=== PATIENT | female | born 1955 | race Caucasian/White ===

== ENCOUNTER 2019-03-11 10:39 | Emergency (ER) | payer BC, OTHER ==
[~2019-03-11] VITALS: Ht 157.5 cm; Wt 68.2 kg
[~2019-03-11 10:39] MED LIST: NITR100C6 PO; PHEN-716 PO
[2019-03-11 10:42] VITALS: BP 138/79
[2019-03-11 11:22] LABS: CLARITY,URINE SLIGHTLY CLOUDY (Clear); COLOR,URINE YELLOW (Yellow); GLUCOSE, URINE NEGATIVE (Neg); KETONES,URINE NEGATIVE (Neg); LEUKOCYTE ESTERASE ,URINE LARGE (Neg); NITRITES, URINE NEGATIVE (Neg); OCCULT BLOOD,URINE LARGE (Neg); PROTEIN,URINE 30 mg/dl (Neg); UROBILINOGEN,URINE 0.2 E.U/dL (0.2-1.0)
[2019-03-11 11:28] LABS: UA COLLECTION TYPE CLN CATCH MIDSTREAM
[2019-03-11 11:29] LABS: BACTERIA,URINE 2+ /HPF (Neg); RBC,URINE TNTC /HPF (0-2); WBC,URINE TNTC /HPF (0-4)
[2019-03-11 11:30] LABS: MUCUS STRANDS NONE SEEN /LPF (Neg); SQUAMOUS EPITHELIAL CELL,UR FEW /LPF (FEW)
[2019-03-11] MEDS ORDERED: NITR100C6 PO (11:42)
[2019-03-11] MEDS ORDERED: phenazopyridine 100mg tablet PO ONE ×2 (11:50→12:05)
[2019-03-11] MEDS ORDERED: nitrofuran/nitrofuran macrocrysal 100 MG capsule PO ONE (11:50)
[2019-03-11] MEDS ORDERED: PHEN-716 PO (11:56)
== END 2019-03-11 12:10 | disposition home or self-care (01) ==
LOC: ER 10:40
DX: N39.0 Urinary tract infection, site not specified (principal); R31.9 Hematuria, unspecified; I10 Essential (primary) hypertension; Z98.890 Other specified postprocedural states; Z88.5 Allergy status to narcotic agent; Z88.8 Allergy status to other drugs, medicaments and biological substances; Z79.899 Other long term (current) drug therapy
CPT/HCPCS: 81001; 87077; 87088; 87186; 99284

== ENCOUNTER 2019-04-07 02:27 | Emergency (ER) | payer BC, OTHER ==
[~2019-04-07] VITALS: Ht 157.5 cm; Wt 66.4 kg
[2019-04-07 02:54] LABS: CLARITY,URINE CLEAR (Clear); COLOR,URINE YELLOW (Yellow); GLUCOSE, URINE NEGATIVE (Neg); KETONES,URINE NEGATIVE (Neg); LEUKOCYTE ESTERASE ,URINE SMALL (Neg); NITRITES, URINE NEGATIVE (Neg); OCCULT BLOOD,URINE NEGATIVE (Neg); PH,URINE 8.5 (4.8-8.0); PROTEIN,URINE NEGATIVE (Neg); UROBILINOGEN,URINE 0.2 E.U/dL (0.2-1.0)
--- NOTE | 2019-04-07 02:57 | NUR ---
Patient is with
[2019-04-07 03:02] LABS: UA COLLECTION TYPE CLN CATCH MIDSTREAM
[2019-04-07 03:03] LABS: BACTERIA,URINE NONE SEEN /HPF (Neg); MUCUS STRANDS NONE SEEN /LPF (Neg); RBC,URINE 0-2 /HPF (0-2); SQUAMOUS EPITHELIAL CELL,UR NONE SEEN /LPF (FEW)
[2019-04-07] MEDS ORDERED: phenazopyridine 100mg tablet PO ONE (03:30)
[2019-04-07] MEDS ORDERED: cephalexin 250mg capsule PO ONE (03:30)
[2019-04-07] MEDS ORDERED: PHEN-716 PO (03:39)
[2019-04-07] MEDS ORDERED: CEPH-572 PO (03:39)
[2019-04-07 03:45] VITALS: BP 124/88
== END 2019-04-07 03:46 | disposition home or self-care (01) ==
LOC: ER 02:27
DX: N39.0 Urinary tract infection, site not specified (principal); I10 Essential (primary) hypertension; Z98.890 Other specified postprocedural states; Z88.8 Allergy status to other drugs, medicaments and biological substances; Z79.899 Other long term (current) drug therapy
CPT/HCPCS: 81001; 87088; 99283

== ENCOUNTER 2020-07-14 23:57 | Emergency (ER) | payer BC, OTHER ==
[~2020-07-14] VITALS: Ht 157.5 cm; Wt 68.2 kg
[2020-07-15 01:07] LABS: CLARITY,URINE SLIGHTLY CLOUDY (Clear); COLOR,URINE YELLOW (Yellow); GLUCOSE, URINE NEGATIVE (Neg); KETONES,URINE NEGATIVE (Neg); LEUKOCYTE ESTERASE ,URINE LARGE (Neg); NITRITES, URINE NEGATIVE (Neg); OCCULT BLOOD,URINE LARGE (Neg); PROTEIN,URINE TRACE mg/dl (Neg); UROBILINOGEN,URINE 0.2 E.U/dL (0.2-1.0)
[2020-07-15 01:15] LABS: UA COLLECTION TYPE CLN CATCH MIDSTREAM
[2020-07-15 01:19] LABS: BACTERIA,URINE 1+ /HPF (Neg); MUCUS STRANDS NONE SEEN /LPF (Neg); RBC,URINE 50-100 /HPF (0-2); SQUAMOUS EPITHELIAL CELL,UR NONE SEEN /LPF (FEW); WBC,URINE 50-100 /HPF (0-4)
[2020-07-15 01:20] LABS: TRANSITIONAL EPI CELLS,URINE FEW /HPF; WBC CLUMPS,URINE MANY /HPF (NEGATIVE)
[2020-07-15] MEDS ORDERED: CEFD300C3 PO (01:23)
[2020-07-15] MEDS ORDERED: PHEN-786 PO (01:23)
[2020-07-15 01:49] VITALS: BP 128/77
[2020-07-15] MEDS ORDERED: CefTRIAXone 1000mg IM Kit (w/lidocaine diluent) IM ONE (01:50)
[2020-07-15] MEDS ORDERED: phenazopyridine 100mg tablet PO ONE (01:50)
== END 2020-07-15 02:03 | disposition home or self-care (01) ==
LOC: ER 23:57
DX: N39.0 Urinary tract infection, site not specified (principal); E78.00 Pure hypercholesterolemia, unspecified; I10 Essential (primary) hypertension; Z87.440 Personal history of urinary (tract) infections; Z88.8 Allergy status to other drugs, medicaments and biological substances; Z79.899 Other long term (current) drug therapy
CPT/HCPCS: 81001; 87077; 87088; 87186; 96372; 99283; J0696

== ENCOUNTER 2020-10-12 03:38 | Emergency (ER) | payer BC, OTHER ==
[~2020-10-12] VITALS: Ht 157.5 cm; Wt 70.9 kg
[~2020-10-12 03:38] MED LIST changes: +PHEN-786 PO
--- NOTE | 2020-10-12 04:00 | NUR ---
Urine collected, sent for labs.
[2020-10-12 04:11] LABS: CLARITY,URINE CLEAR (Clear); COLOR,URINE YELLOW (Yellow); GLUCOSE, URINE NEGATIVE (Neg); KETONES,URINE NEGATIVE (Neg); LEUKOCYTE ESTERASE ,URINE LARGE (Neg); NITRITES, URINE NEGATIVE (Neg); OCCULT BLOOD,URINE LARGE (Neg); PROTEIN,URINE NEGATIVE (Neg); UROBILINOGEN,URINE 0.2 E.U/dL (0.2-1.0)
[2020-10-12 04:13] LABS: UA COLLECTION TYPE NON-SPECIFIED
[2020-10-12 04:20] LABS: BACTERIA,URINE FEW /HPF (Neg); RBC,URINE NONE SEEN /HPF (0-2); SQUAMOUS EPITHELIAL CELL,UR FEW /LPF (FEW)
[2020-10-12 04:44] VITALS: BP 157/92
[2020-10-12] MEDS ORDERED: phenazopyridine 100mg tablet PO ONE (05:05)
[2020-10-12] MEDS ORDERED: cephalexin 250mg capsule PO ONE (05:05)
[2020-10-12] MEDS ORDERED: CEPH-585 PO (05:16)
[2020-10-12] MEDS ORDERED: PHEN-716 PO (05:16)
== END 2020-10-12 05:36 | disposition home or self-care (01) ==
LOC: ER 03:39
DX: N39.0 Urinary tract infection, site not specified (principal); R30.0 Dysuria; E78.00 Pure hypercholesterolemia, unspecified; I10 Essential (primary) hypertension; Z87.440 Personal history of urinary (tract) infections; Z98.890 Other specified postprocedural states; Z88.8 Allergy status to other drugs, medicaments and biological substances; Z79.899 Other long term (current) drug therapy
CPT/HCPCS: 81001; 87077; 87088; 87186; 99283